=== PATIENT | female | born 1970 | race Caucasian/White ===

== ENCOUNTER → 2018-09-04 | Day surgery (SDC) | payer OTHER ==
[~2018-09-04] MED LIST: FENTANYL CITRATE/PF 100MCG/2 ML INJ ONE; LIDOCAINE HCL 2% LOCAL INJ 5 ML SDV VIAL INJ ONE; MIDAZOLAM HCL 2 MG/2 ML VIAL ONE; PROPOFOL IV EMULSION 10 MG/ML 20 ML VIAL ONE; vit d PO
--- OUTSIDE RECORDS SUMMARY | 2018-09-04 06:10 | XMS REPORT | Continuity of Care Document ---
Author Author [facility] Address Unknown Phone Unavailable Care Team Providers Care Information Technology Associate Name Role Phone [facility] Unavailable Unavailable Problems Problem Status Onset Date Classification Date Reported Comments Source LUMBAR PAIN Active [facility] [place] Medications No Data Provided for This Section Allergies, Adverse Reactions, Alerts No Known Medication Allergies Immunizations No Data Provided for This Section Results No Data Provided for This Section Pathology Reports No Data Provided for This Section Diagnostic Reports Report Value Date Source Ext Lower Venous Doppler Bilat US EXAM: US BILATERAL LOWER EXTREMITY VENOUS DOPPLER DATE: 02/05/2017 2:05 PM ELIGIBILITY CONSULTANT INDICATION: - M79.605 Pain in left leg, R22.42 Localized swelling, mass and lump, left lower limb. Left leg pain and swelling for the past one day. ADDITIONAL INFORMATION: None. COMPARISON: None. TECHNIQUE: Multiplanar grayscale, color Doppler and spectral Doppler ultrasound images of the bilateral lower extremity veins. FINDINGS: Right Thigh Veins: Common Femoral: Patent. Femoral (SFV): Patent. Popliteal: Patent. Proximal Greater Saphenous: Patent. Deep Femoral Veins: Patent. Right Calf Veins: Paired Peroneal: Patent. Posterior Tibial Calf: Patent. Left Thigh Veins: Common Femoral: Patent. Femoral (SFV): Patent. Popliteal: Patent. Proximal Greater Saphenous: Patent. Deep Femoral Veins: Patent. Left Calf Veins: Paired Peroneal: Patent. Posterior Tibial Calf: Patent. Other: No masses or fluid collections are seen in the [id number] of this exam. IMPRESSION: Normal. No deep venous thrombosis (DVT). 02/05/2017 [facility] Consultation Notes No Data Provided for This Section Discharge Summaries No Data Provided for This Section History and Physicals No Data Provided for This Section Vital Signs No Data Provided for This Section Encounters Location Location Details Encounter Type Encounter Number Reason For Visit Attending Provider ADM Date DC Date Status Source [facility] [place] [facility] [id number] Sebastian Reynolds 11/26/2015 12/26/2015 [facility] [place] [facility] [place] [facility] [id number] Sebastian Reynolds 12/27/2015 01/26/2016 [facility] [place] [facility] [id number] Yadi Bowles 02/05/2017 02/06/2017 [facility] [place] Procedures No Data Provided for This Section Assessment and Plan No Data Provided for This Section Plan of Care No Data Provided for This Section Social History Social History Date Source No data available for this section 02/06/2017 [facility] [place] No data available for this section 01/26/2016 [facility] Family History No Data Provided for This Section Advance Directives No Data Provided for This Section Functional Status No Data Provided for This Section
--- OUTSIDE RECORDS SUMMARY | 2018-09-04 06:10 | XMS REPORT | Summary of Care ---
Author Author [facility] Outpatient Imaging [facility] Address Unknown Phone Unavailable Encounter [facility] Encntr_alias(FIN) [id number] Date(s): 02/05/17 - 02/05/17 [facility] [address], [address] [place] [phone] Discharge Disposition: Home or Self Care Attending Physician: Yadi Bowles MD Vital Signs No data available for this section Problem List No data available for this section Allergies, Adverse Reactions, Alerts No data available for this section Medications No data available for this section Results No data available for this section Immunizations No data available for this section Procedures No data available for this section Social History No data available for this section Assessment and Plan No data available for this section
--- OUTSIDE RECORDS SUMMARY | 2018-09-04 06:10 | XMS REPORT | Summary of Care ---
Author Author [facility] Address Unknown Phone Unavailable Encounter Smileyntr_caty([facility]) [id number] Date(s): 11/26/15 - 12/25/15 [facility] Discharge Disposition: Home or Self Care Attending Physician: Sebastian Reynolds MD Vital Signs No data available for [...]
--- OUTSIDE RECORDS SUMMARY | 2018-09-04 06:10 | XMS REPORT | Summary of Care ---
Author Author [facility] Address Unknown Phone Unavailable Encounter Frankyr_caty([facility]) [id number] Date(s): 12/27/15 - 01/25/16 [facility] Discharge Disposition: Home or Self Care Attending [...]
[2018-09-04 09:00] VITALS: BP 125/86
== END | disposition home or self-care (01) ==
LOC: OR 05:54
PROVIDERS: ATTEND Internal Medicine Gastroenterology
DX: K21.0 Gastro-esophageal reflux disease with esophagitis (principal); Z12.11 Encounter for screening for malignant neoplasm of colon; K29.50 Unspecified chronic gastritis without bleeding; R12 Heartburn; D12.0 Benign neoplasm of cecum; D12.8 Benign neoplasm of rectum; K64.4 Residual hemorrhoidal skin tags; Z83.71 Family history of colonic polyps; E78.5 Hyperlipidemia, unspecified; J45.909 Unspecified asthma, uncomplicated
CPT/HCPCS: 43239; 45385; 81025; 88305; 88312; J2001; J2250; J2704; J3010